=== PATIENT | male | born 1990 | race Caucasian/White ===

== ENCOUNTER 2016-08-24 15:36 | Emergency (ER) | payer OTHER ==
[~2016-08-24] VITALS: Ht 177.8 cm; Wt 89.8 kg
[2016-08-24] MEDS ORDERED: SODIUM CHLORIDE FLUSH 10ML SYR IVF ONE (18:30)
[2016-08-24] MEDS ORDERED: SODIUM CHLORIDE 0.9% 1,000ML IVBOLUS ONE (18:30)
[2016-08-24 18:43] VITALS: BP 137/93
[2016-08-24 18:56] LABS: BLOOD UREA NITROGEN 13 mg/dL (7-18)
[2016-08-24 19:00] LABS: ASPARTATE AMINO TRANSFERASE 22 U/L (15-37)
== END 2016-08-24 20:42 | disposition home or self-care (01) ==
LOC: ED 20:29
DX: J98.01 Acute bronchospasm (principal); E86.0 Dehydration; R05 Cough
CPT/HCPCS: 36415; 80053; 83735; 85025; 93005; 96360; 96361; 99285; J7030